=== PATIENT | female | born 1965 | race Caucasian/White ===

== ENCOUNTER → 2020-01-27 | Outpatient (CLI) | payer OTHER ==
[2020-01-27 09:57] LABS: CHOLESTEROL 154 mg/dL (<200); HDL CHOLESTEROL 47 mg/dl (40-60); LDL CHOLESTEROL 93 mg/dL (9-159); TRIGLYCERIDES 72 mg/dl (<150); VLDL CHOLESTEROL 14 mg/dL (6-40)
== END | disposition home or self-care (01) ==
LOC: LAB 08:37
PROVIDERS: Family Medicine
DX: Z00.00 Encounter for general adult medical examination without abnormal findings (principal)

== ENCOUNTER → 2020-10-11 | Outpatient (CLI) | payer OTHER | END | disposition home or self-care (01) | LOC: COVID19 14:22 | PROVIDERS: ATTEND Internal Medicine | DX: Z20.828 Contact with and (suspected) exposure to other viral communicable diseases (principal) ==

== ENCOUNTER 2022-12-18 13:06 | Emergency (ER) | payer OTHER ==
[~2022-12-18] VITALS: Ht 160 cm; Wt 49.0 kg
== END 2022-12-18 15:30 | disposition home or self-care (01) ==
LOC: ED 13:06
DX: S52.125A Nondisplaced fracture of head of left radius, initial encounter for closed fracture (principal); S52.025A Nondisplaced fracture of olecranon process without intraarticular extension of left ulna, initial encounter for closed fracture; Z98.51 Tubal ligation status; Z91.040 Latex allergy status; F10.90 Alcohol use, unspecified, uncomplicated; W01.190A Fall on same level from slipping, tripping and stumbling with subsequent striking against furniture, initial encounter; Y93.89 Activity, other specified; Y92.000 Kitchen of unspecified non-institutional (private) residence as the place of occurrence of the external cause; Y99.8 Other external cause status

== ENCOUNTER 2023-04-19 19:55 | Emergency (ER) | payer OTHER ==
[~2023-04-19] VITALS: Wt 49.9 kg
== END 2023-04-19 20:20 | disposition left against medical advice (07) ==
LOC: ED 19:55
DX: S09.90XA Unspecified injury of head, initial encounter (principal); M54.50 Low back pain, unspecified; M54.2 Cervicalgia; R11.0 Nausea; M25.532 Pain in left wrist; M25.512 Pain in left shoulder; Z98.51 Tubal ligation status; Z98.890 Other specified postprocedural states; V89.2XXA Person injured in unspecified motor-vehicle accident, traffic, initial encounter; Y93.89 Activity, other specified; Y92.89 Other specified places as the place of occurrence of the external cause; Y99.8 Other external cause status

== ENCOUNTER 2024-03-27 13:48 | Emergency (ER) | payer OTHER ==
[~2024-03-27] VITALS: Ht 160 cm; Wt 52.2 kg
[2024-03-27] MEDS ORDERED: HYDROCODONE-AC1 EAC2 PO (14:14)
[2024-03-27] MEDS ORDERED: MELOXICAM15 MG PO (14:14)
[2024-03-27] MEDS ORDERED: PREDNISONE10 MG PO (14:15)
[2024-03-27] MEDS ORDERED: CLONAZEPAM1 MG PO (14:15)
[2024-03-27] MEDS ORDERED: HYDROmorphONE Hydrochloride 1 MG/ML SYR IM ONE (14:40)
== END 2024-03-27 14:49 | disposition home or self-care (01) ==
LOC: ED 13:48
DX: M54.50 Low back pain, unspecified (principal); G89.29 Other chronic pain; F41.9 Anxiety disorder, unspecified; Z88.8 Allergy status to other drugs, medicaments and biological substances; Z98.51 Tubal ligation status; F17.200 Nicotine dependence, unspecified, uncomplicated

== ENCOUNTER → 2024-08-04 | Outpatient (CLI) | payer OTHER ==
[~2024-08-04] MED LIST: CLONAZEPAM1 MG PO; HYDROCODONE-AC1 EAC2 PO; MELOXICAM15 MG PO; PREDNISONE10 MG PO
== END | disposition home or self-care (01) ==
LOC: CT 07-21 15:00
PROVIDERS: ATTEND Internal Medicine
DX: Z12.2 Encounter for screening for malignant neoplasm of respiratory organs (principal); F17.210 Nicotine dependence, cigarettes, uncomplicated; I25.10 Atherosclerotic heart disease of native coronary artery without angina pectoris; R59.0 Localized enlarged lymph nodes; J43.9 Emphysema, unspecified; R91.1 Solitary pulmonary nodule